=== PATIENT | male | born 1970 | race Caucasian/White ===

== ENCOUNTER 2017-11-29 10:40 | Emergency (ER) | payer BC ==
[~2017-11-29] VITALS: Ht 170.1 cm; Wt 79.4 kg
[2017-11-29] MEDS ORDERED: Motrin,Rufen800 MG PO (10:56)
== END 2017-11-29 11:13 | disposition home or self-care (01) ==
LOC: ED 10:40
DX: R51 Headache (principal)

== ENCOUNTER 2018-06-20 19:17 | Emergency (ER) | payer SELFPAY ==
[~2018-06-20] VITALS: Ht 170.1 cm; Wt 79.4 kg
[~2018-06-20 19:17] MED LIST: Motrin,Rufen800 MG PO
== END 2018-06-20 21:25 | disposition home or self-care (01) ==
LOC: ED 19:17
DX: M79.661 Pain in right lower leg (principal); M54.5 Low back pain; R20.0 Anesthesia of skin